=== PATIENT | male | born 2000 | race African-American/Black ===

== ENCOUNTER → 2024-08-26 10:20 | Outpatient (CLI) | payer OTHER, SELFPAY ==
--- NOTE | 2024-08-26 10:24 | DI.RAD.S_ITS ---
PROCEDURE: XR ANKLE LT MIN 3V INDICATIONS: football cleat stepped on lateral ankle/foot. Pain. TECHNIQUE: 3 views of the ankle were acquired. COMPARISON: None. FINDINGS: Bones: No fractures or dislocations. Ankle mortise is normally aligned. No suspicious bony lesions. Soft tissues: No tibiotalar joint effusion. Achilles tendon appears normal. IMPRESSION: No acute bony abnormality or significant effusion. Dictated by: Manuelito Chavez M.D. on 08/26/2024 at 11:12 Approved by: Manuelito Chavez M.D. on 08/26/2024 at 11:13
--- NOTE | 2024-08-26 10:24 | DI.RAD.S_ITS ---
PROCEDURE: XR FOOT LT MIN 3V INDICATIONS: football cleat stepped on lateral ankle/foot. Pain. TECHNIQUE: 3 views of the foot were acquired. COMPARISON: None. FINDINGS: Bones: No fractures or dislocations. No suspicious bony lesions. Soft tissues: No tibiotalar joint effusion. Achilles tendon appears normal. IMPRESSION: No acute bony abnormality. Dictated by: Manuelito Chavez M.D. on 08/26/2024 at 11:14 Approved by: Manuelito Chavez M.D. on 08/26/2024 at 11:14
== END ==
PROVIDERS: Referring Provider Physician Assistant Medical; Visit Provider Physician Assistant Medical
DX: M25.572 Pain in left ankle and joints of left foot (principal)
CPT/HCPCS: 73610; 73630